=== PATIENT | female | born 1940 | race Caucasian/White ===

== ENCOUNTER 2018-12-23 13:03 | Observation (INO) | payer OTHER, BC ==
--- NOTE | 2018-12-23 13:35 | PDOC ---
History of Present Illness - General Chief Complaint: Weakness Stated Complaint: WEAKNESS Time Seen by Provider: 12/23/18 13:10 History Source: Patient - History of Present Illness Timing/Duration: other Past History - Past Medical History Allergies/Adverse Reactions: Allergies Allergy/AdvReac Type Severity Reaction Status Date / Time No Known Allergies Allergy Verified 12/23/18 13:23 Home Medications: Ambulatory Orders Atorvastatin Calcium [Lipitor] 10 mg PO HS 03/07/13 Cyanocobalamin [Vitamin B12 -] 1,000 mcg PO DAILY 03/07/13 Guar Gum [Benefiber] 1 each PO BID 03/07/13 Omega3/Dha/Epa/Fish Oil/Vit D3 [[id number]-6-[id number] Oil-Vit D3 Sftgl] 1 each PO DAILY 03/07/13 Aspirin Coated [Ecotrin -] 81 mg PO DAILY #0 tablet.ec 06/26/15 Ranitidine HCl [Zantac] 150 mg PO BID #0 tablet 06/26/15 Anemia: No Asthma: No Cancer: No Cardiac Disorders: No CVA: No COPD: No CHF: No Dementia: No Diabetes: No GI Disorders: Yes (DIVERTICULOSIS,H/O COLON POLYPS,GERD) Disorders: No Hypercholesterolemia: Yes Liver Disease: No Seizures: No Thyroid Disease: No - Surgical History Abdominal Surgery: No Appendectomy: No Cardiac Surgery: No Cholecystectomy: No Lung Surgery: No Neurologic Surgery: No Orthopedic Surgery: No - Suicide/Smoking/Psychosocial Hx Smoking Status: Yes Smoking History: Never smoked Have you smoked in the past 12 months: No Number of Cigarettes Smoked Daily: 10 Information on smoking cessation initiated: No Hx Alcohol Use: No Drug/Substance Use Hx: No Substance Use Type: None Hx Substance Use Treatment: No Review of Systems - Review of Systems Constitutional: Yes: Malaise, Weakness. No: Chills, Fever Respiratory: No: Cough, Shortness of Breath Cardiac (ROS): No: Chest Pain, Lightheadedness, Palpitations, Syncope ABD/GI: No: Diarrhea, Nausea, Vomiting, Abdominal cramping : No: Burning, Dysuria, Flank Pain, Hematuria Musculoskeletal: No: Back Pain *Physical Exam - Vital Signs Last Vital Signs Temp Pulse Resp BP Pulse Ox 97.4 F L 86 16 109/52 L 93 L 12/23/18 13:05 12/23/18 13:05 12/23/18 13:05 12/23/18 13:05 12/23/18 13:05 - Physical Exam General Appearance: Yes: Appropriately Dressed. No: Apparent Distress HEENT: positive: Normal Voice Neck: positive: Supple Respiratory/Chest: positive: Lungs Clear, Normal Breath Sounds. negative: Respiratory Distress Cardiovascular: positive: Regular Rate, S1, S2 Gastrointestinal/Abdominal: positive: Soft. negative: Tender Musculoskeletal: negative: CVA Tenderness Integumentary: positive: Dry, Warm Neurologic: positive: Fully Oriented, Alert, Normal Mood/Affect Moderate Sedation - Procedure Monitoring Vital Signs: Procedure Monitoring Vital Signs Temperature 97.4 F L 12/23/18 13:05 Pulse Rate 86 12/23/18 13:05 Respiratory Rate 16 12/23/18 13:05 Blood Pressure 109/52 L 12/23/18 13:05 O2 Sat by Pulse Oximetry (%) 93 L 12/23/18 13:05 ED Treatment Course - LABORATORY CBC & Chemistry Diagram: 12/23/18 14:05 12/23/18 13:31 Medical Decision Making - Medical Decision Making 12/23/18 13:32 78-year-old female, history of hypertension, COPD, not on oxygen, wears diapers for urinary incontinence, endometrial cancer, s/p MORENO-BSO 2/2 endometrial cancer 12/08/18 at [facility], currently on day 2 of macrobid for UTI per pt, resents with malaise and "feeling crappy" 3 days. States since surgery, she has had intermittent vaginal spotting, mostly when she wipes w/ no change in baseline. No abdominal pain, flank pain, dysuria, nausea, vomiting, fever, chills or change in bowel movements See exam Malaise R/o cardiac vs infectious vs metabolic -IVF -labs -dispo pending 12/23/18 17:11 EKG/CXR and las unremarkable. As discussed with Dr. Noble, will admit to observation given ongoing malaise 12/23/18 17:23 Case discussed with hospitalist and patient admitted to observation *DC/Admit/Observation/Transfer Diagnosis at time of Disposition: Malaise - Discharge Dispostion Condition at time of disposition: Fair Decision to Admit order: Yes - Referrals Referrals: Umberto Noble MD [Primary Care Provider] - - Patient Instructions - Post Discharge Activity
[2018-12-23 14:19] LABS: BASO % 0.3 % (0-2.0); EOS % 5.6 % (0-4.5); HEMATOCRIT 34.7 % (32.4-45.2); LYMPH % 7.2 % (8-40); MCH 28.6 pg (25.7-33.7); MCHC 34.5 g/dl (32.0-36.0); MEAN CELL VOLUME 82.9 fl (80-96); MONO % 10.4 % (3.8-10.2); NEUT % 76.5 % (42.8-82.8); PLATELET COUNT 344 K/MM3 (134-434); RBC 4.18 M/mm3 (3.60-5.2); RDW 14.6 % (11.6-15.6); WHITE BLOOD COUNT 6.3 K/mm3 (4.0-10.0)
[2018-12-23 14:38] LABS: INR 1.93 (0.83-1.09); PROTHROMBIN TIME (PATIENT) 22.9 SEC (9.7-13.0)
[2018-12-23 14:47] LABS: ALBUMIN 3.1 g/dl (3.4-5.0); ALK PHOS 103 U/L (45-117); ANION GAP 10 MMOL/L (8-16); BILIRUBIN,TOTAL 0.4 mg/dL (0.2-1); BLOOD UREA NITROGEN 32 mg/dL (7-18); CALCIUM 9.5 mg/dL (8.5-10.1); CHLORIDE 103 mmol/L (98-107); CO2 25 mmol/L (21-32); CREATININE 1.3 mg/dL (0.55-1.3); GLUCOSE,RANDOM 103 mg/dL (74-106); LIPASE 458 U/L (73-393); POTASSIUM 3.9 mmol/L (3.5-5.1); SGOT/AST 13 U/L (15-37); SGPT/ALT 15 U/L (13-61); SODIUM 138 mmol/L (136-145); TOT PROT 6.5 g/dl (6.4-8.2)
[2018-12-23] MEDS ORDERED: SODIUM CHLORIDE 500 ML IV STA ×2 (14:59→17:23)
[2018-12-23 16:41] LABS: URINE APPEARANCE SLCLOUDY; URINE BILIRUBIN NEGATIVE (<2.0 mg/dL); URINE COLOR YELLOW; URINE GLUCOSE (UA) NEGATIVE (NEGATIVE); URINE KETONE NEGATIVE (NEGATIVE); URINE LEUK ESTERASE TRACE (NEGATIVE); URINE NITRITE NEGATIVE (NEGATIVE); URINE PROTEIN NEGATIVE (NEGATIVE); URINE UROBILINOGEN NEGATIVE mg/dL (0.2-1.0)
[2018-12-23 16:50] LABS: EPI CELLS RARE /HPF (FEW); URINE MUCUS RARE
--- NOTE | 2018-12-23 17:55 | PN ---
Teaching Attending Note Name of Resident: Shireen Barnett ATTENDING PHYSICIAN STATEMENT I saw and evaluated the patient. I reviewed the resident's note and discussed the case with the resident. I agree with the resident's findings and plan as documented with exceptions below. SUBJECTIVE: 78 yof with PMHx of HTN, recent MORENO-BSO for endometrial Ca with ?appendectomy (), On Xarelto since surgery for ?Prophylaxis, COPD not on home oxygen, > 50 pack year smoking history, has been having weakness/malaise with occasional vaginal spotting since her surgery with decreased oral intake. A week ago, she had urinary symptoms, diagnosed with UTI and placed on 1 week course of macrobid which she will be finishing tomorrow. Since taking antibiotics, she has been having worsening oral intake, weakness, called her jamb cutter who advised her to come to the ED. 12 point ROS done, patient denies any fevers, chills, URI like illness, sick contacts, abdominal pain or any new or concerning vaginal bleeding over the occasional spotting as mentioned above. Pos non productive cough last few days. OBJECTIVE: Vital Signs Period Temp Pulse Resp BP Sys/Arndt Pulse Ox Last 24 Hr 97.4 F 86 16 109/52 93 Intake & Output 12/20/18 12/21/18 12/22/18 12/23/18 23:59 23:59 23:59 23:59 Weight 155 lb GENERAL: Awake, alert, and fully oriented, in no acute distress. HEAD: Normal with no signs of trauma. EYES: Pupils equal, round and reactive to light, extraocular movements intact, sclera anicteric, conjunctiva clear. No lid lag. EARS, NOSE, THROAT: Ears normal, nares patent, oropharynx clear without exudates. Dry skin and mucous membrane NECK: soft, supple, no JVD noted LUNGS: Breath sounds equal, clear to auscultation bilaterally. No wheezes, and no crackles. No accessory muscle use. HEART: S1S2 regular rate rhythm ABDOMEN: Soft, non tendern, midline lower surgical incision with no active bleeding/discharge/erythema, RLQ small incision with 2 jordi with clean incision MUSCULOSKELETAL: Normal range of motion at all joints. No bony deformities or tenderness. No CVA tenderness. UPPER EXTREMITIES: 2+ pulses, warm, well-perfused. No cyanosis. No clubbing. No peripheral edema. LOWER EXTREMITIES: 2+ pulses, warm, well-perfused. No calf tenderness. No peripheral edema. NEUROLOGICAL: Cranial nerves II-XII intact. Normal speech. Facial symmetry, AAOX3, tongue midline, gait not observed PSYCHIATRIC: Cooperative. Good eye contact. Appropriate mood and affect. SKIN: Warm, dry, normal turgor, no rashes or lesions noted, normal capillary refill. Home Medications Medication Instructions Recorded Atorvastatin Calcium [Lipitor] 10 mg PO HS 03/07/13 Cyanocobalamin [Vitamin B12 -] 1,000 mcg PO DAILY 03/07/13 Guar Gum [Benefiber] 1 each PO BID 03/07/13 Omega3/Dha/Epa/Fish Oil/Vit D3 1 each PO DAILY 03/07/13 [Kpmiv-4-Xqfe Oil-Vit D3 Sftgl] Aspirin Coated [Ecotrin -] 81 mg PO DAILY #0 tablet.ec 06/26/15 Ranitidine HCl [Zantac] 150 mg PO BID #0 tablet 06/26/15 Active Medications Sodium Chloride (Normal Saline -) 500 mls @ 500 mls/hr IV ASDIR STA Stop: 12/23/18 18:22 Last Admin: 12/23/18 17:25 Dose: 500 mls/hr Laboratory Results - last 24 hr 12/23/18 12/23/18 12/23/18 13:31 14:05 14:05 WBC 6.3 RBC 4.18 Hgb 12.0 Hct 34.7 MCV 82.9 MCH 28.6 MCHC 34.5 RDW 14.6 Plt Count 344 MPV 9.0 Absolute Neuts (auto) 4.8 Neutrophils % 76.5 Lymphocytes % 7.2 L Monocytes % 10.4 H Eosinophils % 5.6 H Basophils % 0.3 Nucleated RBC % 0 PT with INR INR Sodium 138 Potassium 3.9 Chloride 103 Carbon Dioxide 25 Anion Gap 10 BUN 32 H Creatinine 1.3 Creat Clearance w eGFR 39.61 Random Glucose 103 Calcium 9.5 Total Bilirubin 0.4 AST 13 L ALT 15 Alkaline Phosphatase 103 Creatine Kinase 31 Troponin I < 0.02 B-Natriuretic Peptide 301.4 Total Protein 6.5 Albumin 3.1 L Lipase 458 H Urine Color Urine Appearance Urine pH Ur Specific Cameron Urine Protein Urine Glucose (UA) Urine Ketones Urine Blood Urine Nitrite Urine Bilirubin Urine Urobilinogen Ur Leukocyte Esterase Urine WBC (Auto) Urine RBC (Auto) Ur Epithelial Cells Urine Mucus Influenza A (Rapid) Influenza B (Rapid) Blood Type Antibody Screen 12/23/18 12/23/18 12/23/18 14:05 14:05 14:05 WBC RBC Hgb Hct MCV MCH MCHC RDW Plt Count MPV Absolute Neuts (auto) Neutrophils % Lymphocytes % Monocytes % Eosinophils % Basophils % Nucleated RBC % PT with INR 22.90 H INR 1.93 H Sodium Potassium Chloride Carbon Dioxide Anion Gap BUN Creatinine Creat Clearance w eGFR Random Glucose Calcium Total Bilirubin AST ALT Alkaline Phosphatase Creatine Kinase Troponin I B-Natriuretic Peptide Total Protein Albumin Lipase Urine Color Urine Appearance Urine pH Ur Specific Cameron Urine Protein Urine Glucose (UA) Urine Ketones Urine Blood Urine Nitrite Urine Bilirubin Urine Urobilinogen Ur Leukocyte Esterase Urine WBC (Auto) Urine RBC (Auto) Ur Epithelial Cells Urine Mucus Influenza A (Rapid) Negative Influenza B (Rapid) Negative Blood Type B POSITIVE Antibody Screen Negative 12/23/18 12/23/18 15:09 16:13 WBC RBC Hgb Hct MCV MCH MCHC RDW Plt Count MPV Absolute Neuts (auto) Neutrophils % Lymphocytes % Monocytes % Eosinophils % Basophils % Nucleated RBC % PT with INR INR Sodium Potassium Chloride Carbon Dioxide Anion Gap BUN Creatinine Creat Clearance w eGFR Random Glucose Calcium Total Bilirubin AST ALT Alkaline Phosphatase Creatine Kinase Troponin I B-Natriuretic Peptide Total Protein Albumin Lipase Urine Color Cancelled Yellow Urine Appearance Cancelled Slcloudy Urine pH Cancelled 5.0 Ur Specific Cameron Cancelled 1.009 L Urine Protein Cancelled Negative Urine Glucose (UA) Cancelled Negative Urine Ketones Cancelled Negative Urine Blood Cancelled 3+ H Urine Nitrite Cancelled Negative Urine Bilirubin Cancelled Negative Urine Urobilinogen Cancelled Negative Ur Leukocyte Esterase Cancelled Trace Urine WBC (Auto) 3 Urine RBC (Auto) 2 Ur Epithelial Cells Rare Urine Mucus Rare Influenza A (Rapid) Influenza B (Rapid) Blood Type Antibody Screen CXR results reviewed ASSESSMENT AND PLAN: 78 yof with PMHx of HTN, recent MOREON-BSO for endometrial Ca with ?appendectomy (), On Xarelto since surgery for ?Prophylaxis, COPD not on home oxygen, > 50 pack year smoking history, recent UTI on macrobid admitted with weakness/ dehydration and failure to thrive -Weakness, suspect multifactorial from recent infection/antibiotics/poor oral intake -Dehydration -Failure to thrive -Recent UTI, on macrobid -?lung nodule, outpatient follow up -COPD not on home oxygen -Endometrial Ca s/p recent MORENO/BSO/?Appendectomy on xarelto -HTN Plan: No s/s concerning for new infection U/a clean. Finish course of macrobid (last dose tomorrow) Gentle hydration overnight, PT eval Continue home meds including xarelto Monitor for concerning bleed or drop in h/h. Outpatient follow up for lung nodule. Dispo admit to obs, d/c in 24 hours pending above if no new concerns Plan discussed patient and /daughter at bedside in detail, all questions answered. Total admit time 55 min.
[2018-12-23] MEDS ORDERED: ALBUTEROL SO4 0.083% IH SOL 2.5 MG/3 ML VIAL.NEB. NEB PRN (18:11)
--- NOTE | 2018-12-23 18:12 | HP ---
CHIEF COMPLAINT: "Feeling Lousy" PCP: Dr. Noble HISTORY OF PRESENT ILLNESS: Patient is a 78 year old female with a PMHx of HTN, HLD, COPD, hypothyroidism, GERD, endometrial cancer s/p MORENO-BSO with appendectomy on 12/08/18 who presented today for a three day history of malaise/weakness and poor oral intake associated with a dry cough. Patient reports being diagnosed with UTI and was given a five day course of Macrobid. Patient states she lost her appetite and was more weak after starting the antibiotics. According to her daughter and at bedside, patient has not been ambulating much in the last 3 days due to the weakness. Patient also reports having occasional vaginal spotting after her procedure but states "very light spotting." She called her OBGYN today and recommended to be evaluated in the ED, which prompted this hospital visit. Otherwise, patient denies being around sick contacts Patient reports having a colonoscopy and endoscopy September 2018 Otherwise, patient denies any chest pain, palpitations, shortness of breath, fever, chills, nausea, vomiting, abdominal pain, loss of consciousness, urinary or bowel symptoms. Of note, patient on Xarelto after her procedure and is unsure why. ER course was notable for: (1) 250cc of fluids (2) (3) Recent Travel: Denies PAST MEDICAL HISTORY: HTN HLD COPD Hypothyroidism GERD Endometrial Cancer PAST SURGICAL HISTORY: Appendectomy MORENO-BSO Social History: Smoking: Former Smoker. Quit 2 years ago. 1PPD from age 16 to 70 Alcohol: Denies Drugs: Denies Allergies: No Known Allergies Allergy (Verified 12/23/18 13:23) HOME MEDICATIONS: Home Medications Medication Instructions Recorded Atorvastatin Calcium [Lipitor] 10 mg PO HS 03/07/13 Cyanocobalamin [Vitamin B12 -] 1,000 mcg PO DAILY 03/07/13 Guar Gum [Benefiber] 1 each PO BID 03/07/13 Omega3/Dha/Epa/Fish Oil/Vit D3 1 each PO DAILY 03/07/13 [[id number]-9-Xccj Oil-Vit D3 Sftgl] Aspirin Coated [Ecotrin -] 81 mg PO DAILY #0 tablet.ec 06/26/15 Ranitidine HCl [Zantac] 150 mg PO BID #0 tablet 06/26/15 REVIEW OF SYSTEMS CONSTITUTIONAL: generalized weakness, malaise, loss of appetite Absent: fever, chills, diaphoresis, weight change HEENT: Absent: rhinorrhea, nasal congestion, throat pain, throat swelling, difficulty swallowing, mouth swelling, ear pain, eye pain, visual changes CARDIOVASCULAR: Absent: chest pain, syncope, palpitations, irregular heart rate, lightheadedness , peripheral edema RESPIRATORY: dry cough Absent: shortness of breath, dyspnea with exertion, orthopnea, wheezing, stridor , hemoptysis GASTROINTESTINAL: Absent: abdominal pain, abdominal distension, nausea, vomiting, diarrhea, constipation, melena, hematochezia GENITOURINARY: Absent: dysuria, frequency, urgency, hesitancy, hematuria, flank pain, genital pain MUSCULOSKELETAL: Absent: myalgia, arthralgia, joint swelling, back pain, neck pain SKIN: Absent: rash, itching, pallor HEMATOLOGIC/IMMUNOLOGIC: Absent: easy bleeding, easy bruising, lymphadenopathy, frequent infections ENDOCRINE: Absent: unexplained weight gain, unexplained weight loss, heat intolerance, cold intolerance NEUROLOGIC: Absent: headache, focal weakness or paresthesias, dizziness, unsteady gait, seizure, mental status changes, bladder or bowel incontinence PSYCHIATRIC: Absent: anxiety, depression, suicidal or homicidal ideation, hallucinations. PHYSICAL EXAMINATION Vital Signs - 24 hr 12/23/18 13:05 Temperature 97.4 F L Pulse Rate 86 Respiratory 16 Rate Blood Pressure 109/52 L O2 Sat by Pulse 93 L Oximetry (%) GENERAL: Awake, alert, and fully oriented, in no acute distress. HEAD: Normal with no signs of trauma. EYES: Pupils equal, round and reactive to light, extraocular movements intact, sclera anicteric, conjunctiva clear.\\ EARS, NOSE, THROAT: Oropharynx clear without exudates. Dry mucous membranes. NECK: Normal range of motion, supple without lymphadenopathy, JVD, or masses. LUNGS: Breath sounds equal, clear to auscultation bilaterally. No wheezes, and no crackles. No accessory muscle use. HEART: Regular rate and rhythm, normal S1 and S2 without murmur, rub or gallop. ABDOMEN: Soft, nontender, mildly distended, normoactive bowel sounds, no guarding, no rebound, no masses. Midline vertical surgical incision with no erythema, drainage or bleeding. Small incision with stable in the RLQ with no erythema or drainage. MUSCULOSKELETAL: No CVA tenderness. UPPER EXTREMITIES: No peripheral edema. LOWER EXTREMITIES: No peripheral edema. NEUROLOGICAL: No facial Asymmetry. Normal speech. PSYCHIATRIC: Cooperative. Good eye contact. Appropriate mood and affect. SKIN: Warm, dry, normal turgor, no rashes or lesions noted, normal capillary refill. Laboratory Results 12/23/18 14:05 12/23/18 13:31 12/23/18 12/23/18 12/23/18 13:31 14:05 14:05 PT with INR 22.90 H INR 1.93 H AST 13 L ALT 15 Alkaline Phosphatase 103 Troponin I < 0.02 B-Natriuretic Peptide 301.4 Total Protein 6.5 Albumin 3.1 L Lipase 458 H ASSESSMENT/PLAN: Patient is a 78 year old female who presented for weakness and malaise. Patient admitted for observation. Weakness and Malaise/Failure to Thrive -With poor oral intake. Likely multifactorial from recent surgery, UTI and antibiotic use -No concerns for active infection -No fevers, leukocytosis, or any signs of active infection -Gentle hydration overnight with IV fluids -Encourage PO -PT eval Elevated BUN -Likely dehydrated from poor oral intake -Light hydration with IV NS @75mls/hr -Encourage PO intake -Continue to monitor BMP Recent UTI -U/A clean -Continue Macrobid 100mg with one more dose for tomorrow morning COPD -No acute exacerbation. On -Duoneb PRN and Proair QID PRN Endometrial Cancer -Recent MORENO/BSO -Was started on Xarelto 10mg for one month. Unknown reason. However, will resume HTN -Continue Losartan 100mg daily -Continue to monitor BP Lung Nodule -Found on Chest X-Ray -Pulmonology follow up F/E/N -IV NS @75mls/ hr -Electrolytes wnl -Sodium controlled diet Prophylaxis -Moderate risk. Xarelto 10mg for DVT -No GI required Disposition -Full code -Will give gentle hydration overnight and PT eval tomorrow. Likely discharged tomorrow. Shireen Barnett [id number] Visit type - Emergency Visit Emergency Visit: Yes ED Registration Date: 12/23/18 Care time: The patient presented to the Emergency Department on the above date and was hospitalized for further evaluation of their emergent condition. - New Patient This patient is new to me today: Yes Date on this admission: 12/23/18 - Critical Care Critical Care patient: No
[2018-12-23] MEDS: SODIUM CHLORIDE 1,000 ML IV SCH (18:25)
[2018-12-23] MEDS ORDERED: ALBUTEROL SO4 8 GM HFA INHALER IH PRN (19:09)
[2018-12-23 20:27] VITALS: BMI 28.0
[2018-12-23] MEDS ORDERED: ALBUTEROL SO4 8 GM HFA INHALER IH SCH (22:00)
[2018-12-23] MEDS ORDERED: ATORVASTATIN CA 10 MG TABLET (FP) PO SCH (22:00)
[2018-12-23] MEDS ORDERED: LOSARTAN POTASSIUM 50 MG TABLET (FP) PO SCH (22:30)
[2018-12-24] MEDS ORDERED: LEVOTHYROXINE NA 25 MCG TABLET (FP) PO SCH (07:00)
[2018-12-24 07:26] LABS: HEMATOCRIT 32.1 % (32.4-45.2); MCH 28.5 pg (25.7-33.7); MCHC 34.3 g/dl (32.0-36.0); MEAN CELL VOLUME 83.1 fl (80-96); MEAN PLT VOLUME 9.4 fl (7.5-11.1); PLATELET COUNT 336 K/MM3 (134-434); RBC 3.87 M/mm3 (3.60-5.2); RDW 14.8 % (11.6-15.6); WHITE BLOOD COUNT 4.9 K/mm3 (4.0-10.0)
[2018-12-24 07:42] LABS: INR 1.23 (0.83-1.09); PROTHROMBIN TIME (PATIENT) 14.6 SEC (9.7-13.0)
[2018-12-24 07:45] LABS: ACTIVATED PTT 30.6 SECONDS (25.2-36.5)
[2018-12-24 08:25] LABS: ANION GAP 7 MMOL/L (8-16); BLOOD UREA NITROGEN 21 mg/dL (7-18); CALCIUM 7.9 mg/dL (8.5-10.1); CHLORIDE 106 mmol/L (98-107); CO2 24 mmol/L (21-32); CREATININE 0.9 mg/dL (0.55-1.3); GLUCOSE,RANDOM 81 mg/dL (74-106); POTASSIUM 3.7 mmol/L (3.5-5.1); SODIUM 138 mmol/L (136-145)
[2018-12-24] MEDS: SODIUM CHLORIDE 1,000 ML IV SCH (09:30)
[2018-12-24] MEDS ORDERED: AMITRIPTYLINE HCL 25 MG TABLET (FP) PO SCH (10:00)
[2018-12-24] MEDS ORDERED: LOSARTAN POTASSIUM 50 MG TABLET (FP) PO SCH (10:00)
--- NOTE | 2018-12-24 11:51 | DS ---
Physical Exam: SUBJECTIVE: Patient seen and examined, still feels weak but better, no new fevers, chills, dyspnea, abdominal or urinary symptoms. No new or concerning vaginal bleed noted. OBJECTIVE: Vital Signs Period Temp Pulse Resp BP Sys/Arndt Pulse Ox Last 24 Hr 97.4 F-99.2 F 72-86 16-20 103-146/52-74 93-99 Intake & Output 12/21/18 12/22/18 12/23/18 12/24/18 23:59 23:59 23:59 23:59 Intake Total 1000 900 Balance 1000 900 Weight 148 lb 1.6 oz PHYSICAL EXAM GENERAL: The patient is awake, alert, and fully oriented, in no acute distress. HEAD: Normal with no signs of trauma. EYES: PERRL, extraocular movements intact, sclera anicteric, conjunctiva clear. ENT: Ears normal, nares patent, oropharynx clear without exudates, moist mucous membranes. NECK: Trachea midline, full range of motion, supple. LUNGS: Breath sounds equal, clear to auscultation bilaterally, no wheezes, no crackles, no accessory muscle use. HEART: Regular rate and rhythm, S1, S2 ABDOMEN: Soft, nontender, well healing surgical incision, 2 jordi RLQ surgical incision, non distended, no voluntary or involuntary guarding or rigidity, no suprapubic tenderness, no CVA tenderness EXTREMITIES: 2+ pulses, warm, well-perfused, no edema. NEUROLOGICAL: Cranial nerves II through XII grossly intact. Normal speech, gait not observed. PSYCH: Normal mood, normal affect. SKIN: Warm, dry, normal turgor, no rashes or lesions noted. LABS Laboratory Results - last 24 hr 12/23/18 12/23/18 12/23/18 13:31 14:05 14:05 WBC 6.3 RBC 4.18 Hgb 12.0 Hct 34.7 MCV 82.9 MCH 28.6 MCHC 34.5 RDW 14.6 Plt Count 344 MPV 9.0 Absolute Neuts (auto) 4.8 Neutrophils % 76.5 Lymphocytes % 7.2 L Monocytes % 10.4 H Eosinophils % 5.6 H Basophils % 0.3 Nucleated RBC % 0 PT with INR INR PTT (Actin FS) Sodium 138 Potassium 3.9 Chloride 103 Carbon Dioxide 25 Anion Gap 10 BUN 32 H Creatinine 1.3 Creat Clearance w eGFR 39.61 Random Glucose 103 Calcium 9.5 Total Bilirubin 0.4 AST 13 L ALT 15 Alkaline Phosphatase 103 Creatine Kinase 31 Troponin I < 0.02 B-Natriuretic Peptide 301.4 Total Protein 6.5 Albumin 3.1 L Lipase 458 H Urine Color Urine Appearance Urine pH Ur Specific [place] Urine Protein Urine Glucose (UA) Urine Ketones Urine Blood Urine Nitrite Urine Bilirubin Urine Urobilinogen Ur Leukocyte Esterase Urine WBC (Auto) Urine RBC (Auto) Ur Epithelial Cells Urine Mucus Influenza A (Rapid) Influenza B (Rapid) Blood Type Antibody Screen 12/23/18 12/23/18 12/23/18 14:05 14:05 14:05 WBC RBC Hgb Hct MCV MCH MCHC RDW Plt Count MPV Absolute Neuts (auto) Neutrophils % Lymphocytes % Monocytes % Eosinophils % Basophils % Nucleated RBC % PT with INR 22.90 H INR 1.93 H PTT (Actin FS) Sodium Potassium Chloride Carbon Dioxide Anion Gap BUN Creatinine Creat Clearance w eGFR Random Glucose Calcium Total Bilirubin AST ALT Alkaline Phosphatase Creatine Kinase Troponin I B-Natriuretic Peptide Total Protein Albumin Lipase Urine Color Urine Appearance Urine pH Ur Specific [place] Urine Protein Urine Glucose (UA) Urine Ketones Urine Blood Urine Nitrite Urine Bilirubin Urine Urobilinogen Ur Leukocyte Esterase Urine WBC (Auto) Urine RBC (Auto) Ur Epithelial Cells Urine Mucus Influenza A (Rapid) Negative Influenza B (Rapid) Negative Blood Type B POSITIVE Antibody Screen Negative 12/23/18 12/23/18 12/23/18 15:09 16:13 19:15 WBC RBC Hgb Hct MCV MCH MCHC RDW Plt Count MPV Absolute Neuts (auto) Neutrophils % Lymphocytes % Monocytes % Eosinophils % Basophils % Nucleated RBC % PT with INR INR PTT (Actin FS) Sodium Potassium Chloride Carbon Dioxide Anion Gap BUN Creatinine Creat Clearance w eGFR Random Glucose Calcium Total Bilirubin AST ALT Alkaline Phosphatase Creatine Kinase Troponin I B-Natriuretic Peptide Total Protein Albumin Lipase Urine Color Cancelled Yellow Urine Appearance Cancelled Slcloudy Urine pH Cancelled 5.0 Ur Specific [place] Cancelled 1.009 L Urine Protein Cancelled Negative Urine Glucose (UA) Cancelled Negative Urine Ketones Cancelled Negative Urine Blood Cancelled 3+ H Urine Nitrite Cancelled Negative Urine Bilirubin Cancelled Negative Urine Urobilinogen Cancelled Negative Ur Leukocyte Esterase Cancelled Trace Urine WBC (Auto) 3 Urine RBC (Auto) 2 Ur Epithelial Cells Rare Urine Mucus Rare Influenza A (Rapid) Influenza B (Rapid) Blood Type B POSITIVE Antibody Screen 12/24/18 12/24/18 12/24/18 06:00 06:00 06:00 WBC 4.9 RBC 3.87 Hgb 11.0 Hct 32.1 L MCV 83.1 MCH 28.5 MCHC 34.3 RDW 14.8 Plt Count 336 MPV 9.4 Absolute Neuts (auto) Neutrophils % Lymphocytes % Monocytes % Eosinophils % Basophils % Nucleated RBC % PT with INR 14.60 H INR 1.23 H PTT (Actin FS) 30.6 Sodium 138 Potassium 3.7 Chloride 106 Carbon Dioxide 24 Anion Gap 7 L BUN 21 H Creatinine 0.9 Creat Clearance w eGFR > 60 Random Glucose 81 Calcium 7.9 L Total Bilirubin AST ALT Alkaline Phosphatase Creatine Kinase Troponin I B-Natriuretic Peptide Total Protein Albumin Lipase Urine Color Urine Appearance Urine pH Ur Specific [place] Urine Protein Urine Glucose (UA) Urine Ketones Urine Blood Urine Nitrite Urine Bilirubin Urine Urobilinogen Ur Leukocyte Esterase Urine WBC (Auto) Urine RBC (Auto) Ur Epithelial Cells Urine Mucus Influenza A (Rapid) Influenza B (Rapid) Blood Type Antibody Screen HOSPITAL COURSE: Date of Admission:12/23/18 Date of Discharge: 12/24/18 Minutes to complete discharge: 35 Discharge Summary Reason For Visit: MALAISE Current Active Problems Malaise (Acute) Hospital Course: 78 HTN, 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 She did not have any new clinical evidence of infection. no concerning vaginal bleed or surgical concerns were noted. She was evaluated by physical therapy and advised home PT which has been arranged. She was placed on gentle hydration and was tolerating diet well during her stay. She will be discharged in stable condition with outpatient follow up with her group fitness instructor and PCP. She was incidentally noted with nodule, likely calcified on left lung/breast region which was present on her CT Chest in 10/2018 and is advised outpatient follow up. Condition: Good - Instructions Diet, Activity, Other Instructions: You were admitted with weakness. You received hydration and were evaluated by physical therapy and recommended home physical therapy. MEDICATIONS: Continue your home medications as before You finished your course of antibiotic macrobid in the hospital. No further treatment needed at this point. ACTIVITY: As tolerated try to drink more fluids and maintain adequate hydration FOLLOW UP; You were incidentally found with left breast nodule (Which was present on CT scan done in oct 2018). Please follow up with your doctor about the same. Follow up with your group fitness instructor as scheduled Follow up with Dr. Noble in 1 week If you notice any new fevers, chills, bleeding, cough, trouble breathing, urinary symptoms, belly pain or new concerns, please call 911 or come to ED Referrals: Umberto Noble MD [Primary Care Provider] - Disposition: VNS/HOME HEALTH CARE - Home Medications Comprehensive Discharge Medication List: Ambulatory Orders Atorvastatin Calcium [Lipitor] 10 mg PO HS 03/07/13 Cyanocobalamin [Vitamin B12 -] 1,000 mcg PO DAILY 03/07/13 Guar Gum [Benefiber] 1 each PO BID 03/07/13 Omega3/Dha/Epa/Fish Oil/Vit D3 [Pjoer-2-Esix Oil-Vit D3 Sftgl] 1 each PO DAILY 03/07/13 Albuterol Sulfate [Proair Hfa] 8.5 gm IH QID 12/23/18 Amitriptyline HCl [Elavil -] 25 mg PO DAILY 12/23/18 Levothyroxine [Synthroid -] 25 mcg PO DAILY 12/23/18 Losartan Potassium 100 mg PO DAILY 12/23/18 Rivaroxaban [Xarelto -] 10 mg PO DAILY 12/23/18 This patient is new to me today: No Emergency Visit: Yes ED Registration Date: 12/23/18 Care time: The patient presented to the Emergency Department on the above date and was hospitalized for further evaluation of their emergent condition. Critical Care patient: No - Discharge Referral Referred to [facility] No
[2018-12-24 14:26] VITALS: BP 102/59; PULSE 78; TEMP 98.4
--- NOTE | 2018-12-24 16:45 | EKG ---
Test Reason : Blood Pressure : / mmHG Vent. Rate : 084 BPM Atrial Rate : 084 BPM P-R Int : 138 ms QRS Dur : 078 ms QT Int : 382 ms P-R-T Axes : 065 008 049 degrees QTc Int : 451 ms NORMAL SINUS RHYTHM NONSPECIFIC ST ABNORMALITY ABNORMAL ECG WHEN COMPARED WITH ECG OF 04-NOV-2004 11:38, [place] INTERVAL HAS INCREASED Confirmed by Carmelita Yee ([id number]) on 12/24/2018 4:44:44 PM Referred By: Confirmed By:Carmelita Yee
[2018-12-25] MEDS ORDERED: ATORVASTATIN CA 10 MG TABLET (FP) PO SCH (22:00)
== END 2018-12-24 15:53 | disposition home health service (06) ==
LOC: JER 13:03 → JERBED 17:13 → J8W 18:57
PROVIDERS: ADMIT Hospitalist; ATTEND Hospitalist
PROC: 3E0337Z Introduction of Electrolytic and Water Balance Substance into Peripheral Vein, Percutaneous Approach (ICD-10-PCS; principal; 2018-12-23)
DX: R53.81 Other malaise (principal); R53.1 Weakness; R62.7 Adult failure to thrive; E86.0 Dehydration; J44.9 Chronic obstructive pulmonary disease, unspecified; C54.1 Malignant neoplasm of endometrium; I10 Essential (primary) hypertension; E78.00 Pure hypercholesterolemia, unspecified; K21.9 Gastro-esophageal reflux disease without esophagitis; Z87.891 Personal history of nicotine dependence; R79.89 Other specified abnormal findings of blood chemistry; Z79.01 Long term (current) use of anticoagulants; Z79.82 Long term (current) use of aspirin; Z68.28 Body mass index [BMI] 28.0-28.9, adult; Z87.440 Personal history of urinary (tract) infections
CPT/HCPCS: 36415; 71046-TC-FY; 80048; 80053; 81003; 81015; 82550; 83690; 83880; 84484; 85025; 85027; 85610; 85730; 86850; 86900; 86901; 87086; 87804; 93005; 93010; 96360; 96361; 97116-GP; 97161-GP; 99283-25; G0378; J7030

== ENCOUNTER 2022-04-15 04:23 | Day surgery (SDC) | payer OTHER, BC ==
[2022-04-10 14:11] VITALS: BMI 28.3
[~2022-04-15 04:23] MED LIST: ACETAMINOPHEN 325 MG TABLET (FP) PO PRN; CYCLOPENTOLATE HCL 1% OPHTH SOLN 2 ML BOTTLE OP SCH; KETOROLAC TROMETHAMINE 0.5% EYE DROP 1 DROP DROPS OP SCH; OFLOXACIN 0.3% OPHTHALMIC SOLUTION 5 ML BOTTLE OP SCH; PHENYLEPHRINE 2.5% OPHTH SOLN 15 ML BOTTLE OP SCH; TROPICAMIDE 1% OPHTH SOLN 15 ML BOTTLE OP SCH
[2022-04-15] MEDS ORDERED: KETOROLAC TROMETHAMINE 0.5% EYE DROP 1 DROP DROPS ONE (06:20)
[2022-04-15] MEDS ORDERED: CYCLOPENTOLATE HCL 1% OPHTH SOLN 2 ML BOTTLE ONE (06:20)
[2022-04-15] MEDS ORDERED: OFLOXACIN 0.3% OPHTHALMIC SOLUTION 5 ML BOTTLE ONE (06:21)
[2022-04-15] MEDS ORDERED: PHENYLEPHRINE 2.5% OPTHALMIC DROP BOTTLE ONE (06:21)
[2022-04-15] MEDS ORDERED: TROPICAMIDE 1% OPHTH SOLN 15 ML BOTTLE ONE (06:21)
[2022-04-15] MEDS ORDERED: LIDOCAINE HCL/PF 1% SDV 5ML VIAL ONE (07:07)
[2022-04-15] MEDS ORDERED: CHONDROITIN SU A/HYALUR SOD 1 KIT ONE (07:07)
[2022-04-15] MEDS ORDERED: VANCOMYCIN 500 MG VIAL (RESTRICTED TO ID ONLY) ONE (07:18)
[2022-04-15] MEDS ORDERED: EPINEPHrine/PF 1 MG/1 ML (1:1,000) AMPULE ONE (07:18)
[2022-04-15] MEDS ORDERED: TETRACAINE 0.5% OPHTH SOLN 2 ML BOTTLE ONE (07:18)
[2022-04-15] MEDS ORDERED: POVIDONE-IODINE 5% OPHTHALMIC PREP 30 ML SOLUTION ONE (07:19)
[2022-04-15] MEDS ORDERED: SUCCINYLCHOLINE CHLORIDE 200 MG/10 ML SYRINGE ONE (07:26)
[2022-04-15] MEDS ORDERED: PROPOFOL 20 ML ONE (07:26)
[2022-04-15] MEDS ORDERED: MIDAZOLAM HCL 2 MG/2 ML SINGLE DOSE VIAL ONE (08:08)
[2022-04-15] MEDS ORDERED: TETRACAINE 0.5% OPHTH SOLN 2 ML BOTTLE TP ONE (08:11)
[2022-04-15] MEDS ORDERED: POVIDONE-IODINE 5% OPHTHALMIC PREP 30 ML SOLUTION OD ONE (08:12)
[2022-04-15] MEDS ORDERED: BSS (NA/CA/MG/K) BALANCED SALT SOLUTION OPHTH SOLN 15 ML BOTTLE OD ONE (08:18)
[2022-04-15] MEDS ORDERED: CHONDROITIN SU A/HYALUR SOD 1 KIT IO ONE (08:19)
[2022-04-15] MEDS ORDERED: LIDOCAINE HCL 1% PRESERVATIVE FREE - 30ML VIAL IO ONE (08:19)
[2022-04-15] MEDS ORDERED: EPINEPHrine/PF 1 MG/1 ML (1:1,000) AMPULE SQ ONE (08:25)
[2022-04-15 10:12] VITALS: BP 150/70; PULSE 68; TEMP 97
== END 2022-04-15 10:13 | disposition home or self-care (01) ==
LOC: JASU-SURG 04:23
PROVIDERS: ATTEND Ophthalmology
PROC: 08RJ3JZ Replacement of Right Lens with Synthetic Substitute, Percutaneous Approach (ICD-10-PCS; principal; 2022-04-15 08:00)
DX: H26.9 Unspecified cataract (principal)

== ENCOUNTER 2022-04-29 04:22 | Day surgery (SDC) | payer OTHER, BC ==
[2022-04-27 15:40] VITALS: BMI 28.3
[~2022-04-29 04:22] MED LIST changes: -CYCLOPENTOLATE HCL 1% OPHTH SOLN 2 ML BOTTLE OP SCH; -KETOROLAC TROMETHAMINE 0.5% EYE DROP 1 DROP DROPS OP SCH; -OFLOXACIN 0.3% OPHTHALMIC SOLUTION 5 ML BOTTLE OP SCH; -TROPICAMIDE 1% OPHTH SOLN 15 ML BOTTLE OP SCH
[2022-04-29] MEDS ORDERED: KETOROLAC TROMETHAMINE 0.5% EYE DROP 1 DROP DROPS ONE (06:30)
[2022-04-29] MEDS ORDERED: OFLOXACIN 0.3% OPHTHALMIC SOLUTION 5 ML BOTTLE ONE (06:31)
[2022-04-29] MEDS ORDERED: TROPICAMIDE 1% OPHTH SOLN 15 ML BOTTLE ONE (06:31)
[2022-04-29] MEDS ORDERED: CYCLOPENTOLATE HCL 1% OPHTH SOLN 2 ML BOTTLE ONE (06:31)
[2022-04-29] MEDS: TROPICAMIDE 1% OPHTH SOLN 15 ML BOTTLE OP SCH ×3 (06:39→07:02)
[2022-04-29] MEDS: CYCLOPENTOLATE HCL 1% OPHTH SOLN 2 ML BOTTLE OP SCH ×3 (06:39→07:01)
[2022-04-29] MEDS: OFLOXACIN 0.3% OPHTHALMIC SOLUTION 5 ML BOTTLE OP SCH ×3 (06:39→07:01)
[2022-04-29] MEDS: PHENYLEPHRINE 2.5% OPTHALMIC DROP BOTTLE ONE ×3 (06:39→07:01)
[2022-04-29] MEDS: KETOROLAC TROMETHAMINE 0.5% EYE DROP 1 DROP DROPS OP SCH ×3 (06:39→07:01)
[2022-04-29] MEDS ORDERED: VANCOMYCIN 500 MG VIAL (RESTRICTED TO ID ONLY) ONE (07:11)
[2022-04-29] MEDS ORDERED: LIDOCAINE HCL/PF 1% SDV 5ML VIAL ONE (07:11)
[2022-04-29] MEDS ORDERED: TETRACAINE 0.5% OPHTH SOLN 2 ML BOTTLE ONE (07:17)
[2022-04-29] MEDS ORDERED: POVIDONE-IODINE 5% OPHTHALMIC PREP 30 ML SOLUTION ONE (07:42)
[2022-04-29] MEDS ORDERED: MIDAZOLAM HCL 2 MG/2 ML SINGLE DOSE VIAL ONE (07:58)
[2022-04-29] MEDS ORDERED: TETRACAINE 0.5% OPHTH SOLN 2 ML BOTTLE OS ONE ×2 (07:59→08:00)
[2022-04-29] MEDS ORDERED: POVIDONE-IODINE 5% OPHTHALMIC PREP 30 ML SOLUTION OS ONE (08:00)
[2022-04-29] MEDS ORDERED: BSS (NA/CA/MG/K) BALANCED SALT SOLUTION OPHTH SOLN 15 ML BOTTLE IO ONE (08:07)
[2022-04-29] MEDS ORDERED: LIDOCAINE HCL 1% PRESERVATIVE FREE - 30ML VIAL IO ONE (08:08)
[2022-04-29] MEDS ORDERED: CHONDROITIN SU A/HYALUR SOD 1 KIT IO ONE (08:08)
[2022-04-29] MEDS ORDERED: EPINEPHrine/PF 1 MG/1 ML (1:1,000) AMPULE SQ ONE (08:14)
[2022-04-29 15:30] VITALS: BP 150/80; PULSE 68; TEMP 98.2
== END 2022-04-29 10:30 | disposition home or self-care (01) ==
LOC: JASU-SURG 04:22
PROVIDERS: ATTEND Ophthalmology
PROC: 08RK3JZ Replacement of Left Lens with Synthetic Substitute, Percutaneous Approach (ICD-10-PCS; principal; 2022-04-29 08:00)
DX: H26.9 Unspecified cataract (principal)

== ENCOUNTER 2022-08-06 05:09 | Day surgery (SDC) | payer OTHER, BC ==
[2022-08-04 16:19] VITALS: BMI 28.3
[2022-08-06 12:52] VITALS: BP 149/79; PULSE 58; RESP 16; TEMP 97.8
[2022-08-06] MEDS ORDERED: EPINEPHrine 1:10,000 (P-F SYR) 1 MG/10 ML DISP.SYRIN ONE (15:23)
== END 2022-08-06 13:30 | disposition home or self-care (01) ==
LOC: JASU-ENDO 05:09
PROVIDERS: ATTEND Internal Medicine Gastroenterology
PROC: 0DBM8ZX Excision of Descending Colon, Via Natural or Artificial Opening Endoscopic, Diagnostic (ICD-10-PCS; 2022-08-06)
PROC: 0DBH8ZX Excision of Cecum, Via Natural or Artificial Opening Endoscopic, Diagnostic (ICD-10-PCS; 2022-08-06)
PROC: 0DBN8ZX Excision of Sigmoid Colon, Via Natural or Artificial Opening Endoscopic, Diagnostic (ICD-10-PCS; 2022-08-06)
PROC: 3E0H8GC Introduction of Other Therapeutic Substance into Lower GI, Via Natural or Artificial Opening Endoscopic (ICD-10-PCS; 2022-08-06)
PROC: 0DBK8ZX Excision of Ascending Colon, Via Natural or Artificial Opening Endoscopic, Diagnostic (ICD-10-PCS; principal; 2022-08-06 09:30)
DX: Z12.11 Encounter for screening for malignant neoplasm of colon (principal); D12.0 Benign neoplasm of cecum; D12.4 Benign neoplasm of descending colon; D12.2 Benign neoplasm of ascending colon; K63.5 Polyp of colon; K57.30 Diverticulosis of large intestine without perforation or abscess without bleeding; K64.8 Other hemorrhoids; Z86.010 Personal history of colon polyps; Z80.0 Family history of malignant neoplasm of digestive organs
CPT/HCPCS: 88305-TC

== ENCOUNTER 2022-08-20 04:09 | Day surgery (SDC) | payer OTHER, BC ==
[2022-08-17 09:29] VITALS: BMI 28.3
[2022-08-20 09:46] VITALS: BP 137/66; PULSE 61; RESP 19; TEMP 97.8
== END 2022-08-20 10:02 | disposition home or self-care (01) ==
LOC: JASU-ENDO 04:09
PROVIDERS: ATTEND Internal Medicine Gastroenterology
PROC: 0DB78ZX Excision of Stomach, Pylorus, Via Natural or Artificial Opening Endoscopic, Diagnostic (ICD-10-PCS; 2022-08-20)
PROC: 0DB68ZX Excision of Stomach, Via Natural or Artificial Opening Endoscopic, Diagnostic (ICD-10-PCS; principal; 2022-08-20 08:30)
DX: K29.50 Unspecified chronic gastritis without bleeding (principal); K44.9 Diaphragmatic hernia without obstruction or gangrene
CPT/HCPCS: 88305-TC; 88342-TC

== ENCOUNTER 2022-10-19 04:32 | Day surgery (SDC) | payer OTHER, BC ==
[2022-10-14 11:37] VITALS: BMI 29.2
[2022-10-19] MEDS ORDERED: BUPIVACAINE HCL/PF 0.5% (5MG/ML) 10 ML VIAL ONE (10:35)
[2022-10-19] MEDS ORDERED: LIDOCAINE HCL 1%, 10 MG/ML (20ML VIAL) ONE (10:35)
[2022-10-19] MEDS ORDERED: FENTANYL CITRATE/PF 50 MCG/ML VIAL ONE (10:39)
[2022-10-19] MEDS ORDERED: MIDAZOLAM HCL 2 MG/2 ML SINGLE DOSE VIAL ONE (10:40)
[2022-10-19] MEDS ORDERED: HEPARIN NA (PORCINE) 5,000 UNITS/ML 1ML VIAL ONE (10:53)
[2022-10-19] MEDS ORDERED: ceFAZolin SODIUM 1 GM VIAL ONE (11:14)
[2022-10-19] MEDS ORDERED: ceFAZolin SODIUM 1 GM VIAL IVPB ONE (11:15)
[2022-10-19] MEDS ORDERED: LIDOCAINE HCL 1%, 10 MG/ML (20ML VIAL) NR ONE (11:26)
[2022-10-19] MEDS ORDERED: BUPIVACAINE HCL/PF 0.5% (5MG/ML) 10 ML VIAL NR ONE (11:36)
[2022-10-19 15:35] VITALS: RESP 20; TEMP 98
[2022-10-19 15:43] VITALS: BP 139/84; PULSE 68
== END 2022-10-19 15:30 | disposition home or self-care (01) ==
LOC: JASU-SURG 04:32
PROVIDERS: ATTEND Student in an Organized Health Care Education/Training Program
PROC: 0JH63WZ Insertion of Totally Implantable Vascular Access Device into Chest Subcutaneous Tissue and Fascia, Percutaneous Approach (ICD-10-PCS; principal; 2022-10-19 09:30)
DX: C34.12 Malignant neoplasm of upper lobe, left bronchus or lung (principal); Z87.891 Personal history of nicotine dependence
CPT/HCPCS: 36561; C1788; 71045-TC-FY; 94760; J1644

== ENCOUNTER 2022-11-03 10:46 | Day surgery (SDC) | payer OTHER, BC ==
[~2022-11-03 10:46] MED LIST changes: -ACETAMINOPHEN 325 MG TABLET (FP) PO PRN; +CARBOPLATIN IVPB ONE; +CYANOCOBALAMIN (VITAMIN B-12) 1000 MCG/1 ML VIAL IM ONE; +DEXAMETHASONE SODIUM PHOSPHATE 10 MG in SODIUM CHLORIDE 50 ML IVPB ONE; +FOSAPREPITANT DIMEGLUMINE 150 MG in SODIUM CHLORIDE 145 ML IVPB ONE; +PALONOSETRON HCL 0.25 MG/5 ML VIAL IVPUSH ONE; +PEMETREXED DISODIUM IVPB ONE; -PHENYLEPHRINE 2.5% OPHTH SOLN 15 ML BOTTLE OP SCH; +SODIUM CHLORIDE 250 ML IV ONE; +SODIUM CHLORIDE IVPB ONE
[2022-11-03 11:21] LABS: BASO % 0.2 % (0-2.0); HEMATOCRIT 43.7 % (32.4-45.2); HEMOGLOBIN 14.4 GM/dL (10.7-15.3); LYMPH % 7.4 % (8-40); MCH 28.1 pg (25.7-33.7); MEAN CELL VOLUME 85.1 fl (80-96); MEAN PLT VOLUME 9.5 fl (7.5-11.1); MONO % 8.9 % (3.8-10.2); NEUT % 83.5 % (42.8-82.8); PLATELET COUNT 326 10^3/uL (134-434); RBC 5.14 M/mm3 (3.60-5.2); RDW 14.3 % (11.6-15.6); WHITE BLOOD COUNT 12.4 K/mm3 (4.0-10.0)
[2022-11-03 11:40] LABS: CALCIUM 11.4 mg/dL (8.5-10.1)
[2022-11-03 11:41] LABS: ALBUMIN 4.2 g/dl (3.4-5.0); BLOOD UREA NITROGEN 21.2 mg/dL (7-18); MAGNESIUM 2.3 mg/dL (1.8-2.4)
[2022-11-03 11:43] LABS: BILIRUBIN,DIRECT 0.2 mg/dL (0.0-0.2)
[2022-11-03 11:45] LABS: BILIRUBIN,TOTAL 0.8 mg/dL (0.2-1); TOT PROT 7.9 g/dl (6.4-8.2)
[2022-11-03] MEDS ORDERED: SODIUM CHLORIDE IVPB ONE (12:15)
[2022-11-03] MEDS ORDERED: CARBOPLATIN IVPB ONE (12:15)
[2022-11-03 16:13] VITALS: BP 132/53; PULSE 85; RESP 20; TEMP 97.5
[2022-11-03] MEDS ORDERED: PORTA CATH FLUSH 10 ML IVPUSH PRN (16:38)
== END 2022-11-03 15:00 | disposition home or self-care (01) ==
LOC: JONCCHEMO 10:46
PROVIDERS: ATTEND Internal Medicine Hematology & Oncology
DX: Z51.11 Encounter for antineoplastic chemotherapy (principal); C34.12 Malignant neoplasm of upper lobe, left bronchus or lung; C54.1 Malignant neoplasm of endometrium
CPT/HCPCS: 36415; 80048; 80076; 83735; 85025; 96367; 96372; 96375; 96411; 96413; J1453; J2469; J9305

== ENCOUNTER 2022-11-04 09:14 | Day surgery (SDC) | payer OTHER, BC ==
[2022-11-04] MEDS ORDERED: PEGFILGRASTIM-CBQV (UDENYCA) 6 MG/0.6 ML SYRINGE SQ ONE (10:00)
[2022-11-04 13:32] VITALS: BP 161/75; PULSE 92; RESP 18; TEMP 97.9
== END 2022-11-04 09:45 | disposition home or self-care (01) ==
LOC: JONCCHEMO 09:14
PROVIDERS: ATTEND Internal Medicine Hematology & Oncology
PROC: 3E013GC Introduction of Other Therapeutic Substance into Subcutaneous Tissue, Percutaneous Approach (ICD-10-PCS; principal; 2022-11-04)
DX: C34.12 Malignant neoplasm of upper lobe, left bronchus or lung (principal); Z76.89 Persons encountering health services in other specified circumstances
CPT/HCPCS: 96372; Q5111

== ENCOUNTER 2022-11-10 11:26 | Day surgery (SDC) | payer OTHER, BC ==
[2022-11-10 11:45] LABS: HEMATOCRIT 41.3 % (32.4-45.2); HEMOGLOBIN 13.5 GM/dL (10.7-15.3); MCH 28.1 pg (25.7-33.7); MCHC 32.8 g/dl (32.0-36.0); MEAN CELL VOLUME 85.6 fl (80-96); MEAN PLT VOLUME 9.4 fl (7.5-11.1); PLATELET COUNT 132 10^3/uL (134-434); RBC 4.82 M/mm3 (3.60-5.2); RDW 14.2 % (11.6-15.6); WHITE BLOOD COUNT 4.7 K/mm3 (4.0-10.0)
[2022-11-10] MEDS ORDERED: D5-1/2NS+20 MEQ KCL - 20 MEQ/1,000 ML INFUS.BAG IV ONE (12:00)
[2022-11-10] MEDS ORDERED: MAGNESIUM 1GM/D5W - 1 GM/100 ML IVPB IVPB ONE (12:00)
[2022-11-10 12:12] LABS: ANISOCYTOSIS 0; HELMET CELLS 0; HOWELL-JOLLY BODIES 0; MACROCYTOSIS 0; OVALOCYTE 0; ROULEAU 0; SICKELED CELLS 0; TARGET CELLS 0; TEAR DROP CELLS 0; TOXIC GRANULATION 0
[2022-11-10 12:13] LABS: BLOOD UREA NITROGEN 14.8 mg/dL (7-18); CALCIUM 9.8 mg/dL (8.5-10.1); MAGNESIUM 2.4 mg/dL (1.8-2.4)
[2022-11-10 12:14] LABS: ALBUMIN 3.8 g/dl (3.4-5.0)
[2022-11-10 12:16] LABS: BILIRUBIN,DIRECT 0.2 mg/dL (0.0-0.2); CREATININE 0.9 mg/dL (0.55-1.3)
[2022-11-10 12:18] LABS: BILIRUBIN,TOTAL 0.8 mg/dL (0.2-1); TOT PROT 6.9 g/dl (6.4-8.2)
[2022-11-10 16:37] VITALS: BP 125/58; PULSE 68; RESP 18; TEMP 98.2
[2022-11-10] MEDS ORDERED: PORTA CATH FLUSH 10 ML IVPUSH PRN (16:37)
== END 2022-11-10 15:00 | disposition home or self-care (01) ==
LOC: JONCNONCHE 11:26
PROVIDERS: ATTEND Internal Medicine Hematology & Oncology
PROC: 3E043GC Introduction of Other Therapeutic Substance into Central Vein, Percutaneous Approach (ICD-10-PCS; principal; 2022-11-10)
DX: Z76.89 Persons encountering health services in other specified circumstances (principal); C34.12 Malignant neoplasm of upper lobe, left bronchus or lung
CPT/HCPCS: 36415; 80048; 80076; 83735; 85025; 96365; 96366; 96368

== ENCOUNTER 2022-11-25 10:29 | Day surgery (SDC) | payer OTHER, BC ==
[~2022-11-25 10:29] MED LIST changes: -CARBOPLATIN IVPB ONE; +DEXAMETHASONE SODIUM PHOSPHATE 10 MG in DEXTROSE 5%-WATER - 50 ML IVPB ONE; -DEXAMETHASONE SODIUM PHOSPHATE 10 MG in SODIUM CHLORIDE 50 ML IVPB ONE; -PEMETREXED DISODIUM IVPB ONE; -SODIUM CHLORIDE IVPB ONE
[2022-11-25] MEDS ORDERED: PEMETREXED DISODIUM IVPB ONE (10:30)
[2022-11-25] MEDS ORDERED: SODIUM CHLORIDE IVPB ONE ×2 (10:30→11:00)
[2022-11-25] MEDS ORDERED: CARBOPLATIN IVPB ONE (11:00)
[2022-11-25 11:25] LABS: BASO % 0.1 % (0-2.0); HEMATOCRIT 40.6 % (32.4-45.2); HEMOGLOBIN 13.5 GM/dL (10.7-15.3); LYMPH % 3.5 % (8-40); MCH 28.2 pg (25.7-33.7); MCHC 33.2 g/dl (32.0-36.0); MEAN PLT VOLUME 8.5 fl (7.5-11.1); MONO % 8.1 % (3.8-10.2); NEUT % 88.3 % (42.8-82.8); PLATELET COUNT 526 10^3/uL (134-434); RBC 4.78 M/mm3 (3.60-5.2); WHITE BLOOD COUNT 16.7 K/mm3 (4.0-10.0)
[2022-11-25 11:39] LABS: CALCIUM 11.5 mg/dL (8.5-10.1)
[2022-11-25 11:40] LABS: ALBUMIN 4.1 g/dl (3.4-5.0); BLOOD UREA NITROGEN 16.4 mg/dL (7-18); MAGNESIUM 2.5 mg/dL (1.8-2.4)
[2022-11-25 11:42] LABS: BILIRUBIN,DIRECT 0.1 mg/dL (0.0-0.2)
[2022-11-25 11:44] LABS: TOT PROT 7.5 g/dl (6.4-8.2)
[2022-11-25 11:54] LABS: BILIRUBIN,TOTAL 0.4 mg/dL (0.2-1)
[2022-11-25 17:09] VITALS: RESP 20; TEMP 97.6
[2022-11-25 17:19] VITALS: BP 143/73; PULSE 81
[2022-11-25] MEDS ORDERED: PORTA CATH FLUSH 10 ML IVPUSH PRN (17:19)
== END 2022-11-25 14:45 | disposition home or self-care (01) ==
LOC: JONCCHEMO 10:29
PROVIDERS: ATTEND Internal Medicine Hematology & Oncology
DX: Z51.11 Encounter for antineoplastic chemotherapy (principal); C34.12 Malignant neoplasm of upper lobe, left bronchus or lung
CPT/HCPCS: 36415; 80048; 80076; 83735; 85025; 96367; 96375; 96411; 96413; J1453; J2469; J9305

== ENCOUNTER 2022-11-26 14:39 | Day surgery (SDC) | payer OTHER, BC ==
[~2022-11-26 14:39] MED LIST changes: -CYANOCOBALAMIN (VITAMIN B-12) 1000 MCG/1 ML VIAL IM ONE; +D5-1/2NS+20 MEQ KCL - 20 MEQ/1,000 ML INFUS.BAG IV ONE; -DEXAMETHASONE SODIUM PHOSPHATE 10 MG in DEXTROSE 5%-WATER - 50 ML IVPB ONE; -FOSAPREPITANT DIMEGLUMINE 150 MG in SODIUM CHLORIDE 145 ML IVPB ONE; -PALONOSETRON HCL 0.25 MG/5 ML VIAL IVPUSH ONE; +PEGFILGRASTIM-CBQV (UDENYCA) 6 MG/0.6 ML SYRINGE SQ ONE; -SODIUM CHLORIDE 250 ML IV ONE
[2022-11-26 16:43] VITALS: RESP 20; TEMP 97.8
[2022-11-26] MEDS ORDERED: PORTA CATH FLUSH 10 ML IVPUSH PRN (16:43)
[2022-11-26 18:50] VITALS: BP 142/70; PULSE 81
== END 2022-11-26 18:51 | disposition home or self-care (01) ==
LOC: JONCCHEMO 14:39
PROVIDERS: ATTEND Internal Medicine Hematology & Oncology
PROC: 3E0437Z Introduction of Electrolytic and Water Balance Substance into Central Vein, Percutaneous Approach (ICD-10-PCS; principal; 2022-11-26)
PROC: 3E013GC Introduction of Other Therapeutic Substance into Subcutaneous Tissue, Percutaneous Approach (ICD-10-PCS; 2022-11-26)
DX: C34.12 Malignant neoplasm of upper lobe, left bronchus or lung (principal); Z76.89 Persons encountering health services in other specified circumstances
CPT/HCPCS: 36415; 82310; 96360; 96361; 96372; Q5111

== ENCOUNTER 2022-11-29 15:49 | Emergency (ER) | payer OTHER, BC ==
[2022-11-29 16:04] VITALS: BP 122/57; PULSE 87; RESP 16; TEMP 99.7; BMI 29.2
[2022-11-29 19:41] LABS: BASO % 0.3 % (0-2.0); EOS % 0.1 % (0-4.5); HEMATOCRIT 41.1 % (32.4-45.2); HEMOGLOBIN 13.7 GM/dL (10.7-15.3); LYMPH % 2.1 % (8-40); MCH 28.4 pg (25.7-33.7); MCHC 33.3 g/dl (32.0-36.0); MEAN CELL VOLUME 85.2 fl (80-96); MEAN PLT VOLUME 8.5 fl (7.5-11.1); MONO % 2.2 % (3.8-10.2); NEUT % 95.3 % (42.8-82.8); PLATELET COUNT 355 10^3/uL (134-434); RBC 4.83 M/mm3 (3.60-5.2); RDW 15.5 % (11.6-15.6); WHITE BLOOD COUNT 15.3 K/mm3 (4.0-10.0)
[2022-11-29 19:43] LABS: VENOUS BASE EXCESS 0.2 mmol/L (-2-2); VENOUS O2 SATURATION 16.9 % (70-80); VENOUS PH 7.375 (7.310-7.410)
[2022-11-29 19:49] LABS: INR 1.07 (0.83-1.09); PROTHROMBIN TIME (PATIENT) 12.3 SEC (9.7-13.0)
[2022-11-29 19:52] LABS: ACTIVATED PTT 26.8 SECONDS (25.2-36.5)
[2022-11-29 20:09] LABS: CALCIUM 9.2 mg/dL (8.5-10.1)
[2022-11-29 20:10] LABS: ALBUMIN 3.7 g/dl (3.4-5.0); BLOOD UREA NITROGEN 17.6 mg/dL (7-18)
[2022-11-29 20:13] LABS: CREATININE 1.1 mg/dL (0.55-1.3)
[2022-11-29 20:14] LABS: BILIRUBIN,TOTAL 1.1 mg/dL (0.2-1); TOT PROT 6.8 g/dl (6.4-8.2)
[2022-11-29] MEDS ORDERED: ACETAMINOPHEN 500 MG TABLET (FP) PO ONE (21:25)
[2022-11-29 22:22] LABS: EPI CELLS 7 /uL (0-25.1); HYALINE CASTS 0 /uL (0-3.1); PH,URINE 5.5 (5.0-8.0); URINE APPEARANCE CLEAR; URINE BACTERIA 50 /uL (0-1359); URINE BILIRUBIN NEGATIVE (NEGATIVE); URINE COLOR YELLOW; URINE GLUCOSE (UA) NEGATIVE (NEGATIVE); URINE KETONE NEGATIVE (NEGATIVE); URINE LEUK ESTERASE 1+ (NEGATIVE); URINE NITRITE NEGATIVE (NEGATIVE); URINE PROTEIN NEGATIVE (NEGATIVE); URINE RBC 8 /uL (0-23.9); URINE UROBILINOGEN 0.2 mg/dL (0.2-1.0); URINE WBC 57 /uL (0-25.8)
[2022-11-29] MEDS ORDERED: ACETAMINOPHEN 325 MG TABLET (FP) ONE (22:23)
[2022-11-29 22:27] LABS: VENOUS BASE EXCESS 1.6 mmol/L (-2-2); VENOUS O2 SATURATION 64.3 % (70-80); VENOUS PCO2 38.4 mmHg (38-52); VENOUS PH 7.442 (7.310-7.410)
== END 2022-11-30 00:04 | disposition home or self-care (01) ==
LOC: JER 15:49
DX: U07.1 COVID-19 (principal)
CPT/HCPCS: 0241U-QW; 36415; 71045-TC-FY; 80053; 81003; 82803; 83605; 84484; 85025; 85610; 85730; 86850; 86900; 86901; 87040; 87086; 93005; 93010; 99285-25

== ENCOUNTER 2022-12-16 09:55 | Day surgery (SDC) | payer OTHER, BC ==
[~2022-12-16 09:55] MED LIST changes: +CYANOCOBALAMIN (VITAMIN B-12) 1000 MCG/1 ML VIAL IM ONE; -D5-1/2NS+20 MEQ KCL - 20 MEQ/1,000 ML INFUS.BAG IV ONE; +DEXAMETHASONE SODIUM PHOSPHATE IVPB ONE; +DEXTROSE 5% IVPB ONE; +FOSAPREPITANT DIMEGLUMINE 150 MG in SODIUM CHLORIDE 145 ML IVPB ONE; +PALONOSETRON HCL 0.25 MG/5 ML VIAL IVPUSH ONE; -PEGFILGRASTIM-CBQV (UDENYCA) 6 MG/0.6 ML SYRINGE SQ ONE; +SODIUM CHLORIDE 250 ML IV ONE; +WATER IVPB ONE
[2022-12-16] MEDS ORDERED: PEMETREXED DISODIUM IVPB ONE (10:00)
[2022-12-16] MEDS ORDERED: SODIUM CHLORIDE IVPB ONE ×3 (10:00→11:45)
[2022-12-16] MEDS ORDERED: CARBOPLATIN IVPB ONE ×2 (10:11→11:45)
[2022-12-16 10:17] LABS: BASO % 0.2 % (0-2.0); HEMATOCRIT 36.5 % (32.4-45.2); HEMOGLOBIN 12.2 GM/dL (10.7-15.3); MCH 29.2 pg (25.7-33.7); MCHC 33.3 g/dl (32.0-36.0); MEAN CELL VOLUME 87.6 fl (80-96); MEAN PLT VOLUME 8.3 fl (7.5-11.1); MONO % 12.2 % (3.8-10.2); NEUT % 81.6 % (42.8-82.8); PLATELET COUNT 387 10^3/uL (134-434); RBC 4.16 M/mm3 (3.60-5.2)
[2022-12-16 10:59] LABS: CALCIUM 10.4 mg/dL (8.5-10.1)
[2022-12-16 11:00] LABS: ALBUMIN 3.9 g/dl (3.4-5.0); BLOOD UREA NITROGEN 19.2 mg/dL (7-18); MAGNESIUM 2.2 mg/dL (1.8-2.4)
[2022-12-16 11:03] LABS: BILIRUBIN,DIRECT 0.2 mg/dL (0.0-0.2); CREATININE 1.2 mg/dL (0.55-1.3)
[2022-12-16 11:04] LABS: BILIRUBIN,TOTAL 0.5 mg/dL (0.2-1)
[2022-12-16 11:05] LABS: TOT PROT 7.2 g/dl (6.4-8.2)
[2022-12-16 15:02] VITALS: BP 115/61; PULSE 73; RESP 20; TEMP 97.7
[2022-12-16] MEDS ORDERED: PORTA CATH FLUSH 10 ML IVPUSH PRN (15:02)
== END 2022-12-16 13:55 | disposition home or self-care (01) ==
LOC: JONCCHEMO 09:55
PROVIDERS: ATTEND Internal Medicine Hematology & Oncology
DX: Z51.11 Encounter for antineoplastic chemotherapy (principal); C34.12 Malignant neoplasm of upper lobe, left bronchus or lung
CPT/HCPCS: 36415; 80048; 80076; 83735; 85025; 96367; 96375; 96413; J1453; J2469

== ENCOUNTER 2022-12-17 14:47 | Day surgery (SDC) | payer OTHER, BC ==
[~2022-12-17 14:47] MED LIST changes: -CYANOCOBALAMIN (VITAMIN B-12) 1000 MCG/1 ML VIAL IM ONE; +D5-1/2NS+20 MEQ KCL - 20 MEQ/1,000 ML INFUS.BAG IV ONE; -DEXAMETHASONE SODIUM PHOSPHATE IVPB ONE; -DEXTROSE 5% IVPB ONE; -FOSAPREPITANT DIMEGLUMINE 150 MG in SODIUM CHLORIDE 145 ML IVPB ONE; -PALONOSETRON HCL 0.25 MG/5 ML VIAL IVPUSH ONE; -SODIUM CHLORIDE 250 ML IV ONE; -WATER IVPB ONE
[2022-12-17 18:27] VITALS: RESP 20; TEMP 98
[2022-12-17 18:40] VITALS: BP 141/87; PULSE 74
[2022-12-17] MEDS ORDERED: PORTA CATH FLUSH 10 ML IVPUSH PRN (18:40)
== END 2022-12-17 18:20 | disposition home or self-care (01) ==
LOC: JONCCHEMO 14:47
PROVIDERS: ATTEND Internal Medicine Hematology & Oncology
PROC: 3E0437Z Introduction of Electrolytic and Water Balance Substance into Central Vein, Percutaneous Approach (ICD-10-PCS; principal; 2022-12-17)
DX: C34.12 Malignant neoplasm of upper lobe, left bronchus or lung (principal); Z76.89 Persons encountering health services in other specified circumstances
CPT/HCPCS: 96360; 96361

== ENCOUNTER 2023-01-06 08:42 | Day surgery (SDC) | payer OTHER, BC ==
[2023-01-06] MEDS ORDERED: SODIUM CHLORIDE 250 ML IV ONE (09:30)
[2023-01-06 09:43] LABS: BASO % 0.2 % (0-2.0); HEMATOCRIT 36.1 % (32.4-45.2); HEMOGLOBIN 12.3 GM/dL (10.7-15.3); LYMPH % 6.6 % (8-40); MCH 30.5 pg (25.7-33.7); MCHC 34.1 g/dl (32.0-36.0); MEAN CELL VOLUME 89.4 fl (80-96); MEAN PLT VOLUME 8.1 fl (7.5-11.1); MONO % 10.7 % (3.8-10.2); NEUT % 82.5 % (42.8-82.8); PLATELET COUNT 222 10^3/uL (134-434); RBC 4.03 M/mm3 (3.60-5.2); RDW 19.3 % (11.6-15.6); WHITE BLOOD COUNT 5.9 K/mm3 (4.0-10.0)
[2023-01-06] MEDS ORDERED: DEXAMETHASONE SODIUM PHOSPHATE 8 MG in SODIUM CHLORIDE 50 ML IVPB ONE (10:00)
[2023-01-06] MEDS ORDERED: FOSAPREPITANT DIMEGLUMINE 150 MG in SODIUM CHLORIDE 145 ML IVPB ONE (10:00)
[2023-01-06] MEDS ORDERED: PALONOSETRON HCL 0.25 MG/5 ML VIAL IVPUSH ONE (10:00)
[2023-01-06] MEDS ORDERED: CYANOCOBALAMIN (VITAMIN B-12) 1000 MCG/1 ML VIAL IM ONE (10:00)
[2023-01-06 10:05] LABS: ALBUMIN 3.9 g/dl (3.4-5.0); BLOOD UREA NITROGEN 14.4 mg/dL (7-18); CALCIUM 10.2 mg/dL (8.5-10.1); MAGNESIUM 2.3 mg/dL (1.8-2.4)
[2023-01-06 10:07] LABS: BILIRUBIN,DIRECT 0.2 mg/dL (0.0-0.2); BILIRUBIN,TOTAL 0.6 mg/dL (0.2-1); TOT PROT 7.2 g/dl (6.4-8.2)
[2023-01-06] MEDS ORDERED: SODIUM CHLORIDE IVPB ONE ×3 (10:30→11:30)
[2023-01-06] MEDS ORDERED: PEMETREXED DISODIUM IVPB ONE (10:30)
[2023-01-06] MEDS ORDERED: CARBOPLATIN IVPB ONE ×2 (10:45→11:30)
[2023-01-06 16:38] VITALS: TEMP 98
[2023-01-06] MEDS ORDERED: PORTA CATH FLUSH 10 ML IVPUSH PRN (16:48)
[2023-01-06 16:49] VITALS: BP 122/66; PULSE 78; RESP 18
== END 2023-01-06 13:45 | disposition home or self-care (01) ==
LOC: JONCCHEMO 08:42
PROVIDERS: ATTEND Internal Medicine Hematology & Oncology
DX: Z51.11 Encounter for antineoplastic chemotherapy (principal); C34.12 Malignant neoplasm of upper lobe, left bronchus or lung
CPT/HCPCS: 36415; 80048; 80076; 83735; 85025; 96367; 96372; 96375; 96402; 96411; 96413; J1453; J2469; J9305

== ENCOUNTER 2023-04-05 04:25 | Day surgery (SDC) | payer OTHER, BC ==
[2023-04-01 16:25] VITALS: BMI 27.6
[2023-04-05 08:43] VITALS: TEMP 97.8
[2023-04-05 11:12] VITALS: RESP 16
[2023-04-05 11:18] VITALS: BP 133/57; PULSE 60
== END 2023-04-05 11:40 | disposition home or self-care (01) ==
LOC: JASU-ENDO 04:25
PROVIDERS: ATTEND Internal Medicine Gastroenterology
PROC: 0DJD8ZZ Inspection of Lower Intestinal Tract, Via Natural or Artificial Opening Endoscopic (ICD-10-PCS; principal; 2023-04-05 09:15)
DX: K57.30 Diverticulosis of large intestine without perforation or abscess without bleeding (principal); K64.8 Other hemorrhoids

== ENCOUNTER 2023-06-22 04:56 | Day surgery (SDC) | payer OTHER, BC ==
[2023-06-17 16:30] VITALS: BMI 27.3
[2023-06-22 10:35] VITALS: TEMP 98.2
[2023-06-22 10:53] VITALS: RESP 18
[2023-06-22 11:17] VITALS: BP 115/78; PULSE 64
== END 2023-06-22 11:40 | disposition home or self-care (01) ==
LOC: JASU-ENDO 04:56
PROVIDERS: ATTEND Internal Medicine Gastroenterology
PROC: 0DBN8ZX Excision of Sigmoid Colon, Via Natural or Artificial Opening Endoscopic, Diagnostic (ICD-10-PCS; 2023-06-22)
PROC: 0DBP8ZX Excision of Rectum, Via Natural or Artificial Opening Endoscopic, Diagnostic (ICD-10-PCS; 2023-06-22)
PROC: 0DBK8ZX Excision of Ascending Colon, Via Natural or Artificial Opening Endoscopic, Diagnostic (ICD-10-PCS; principal; 2023-06-22 09:45)
DX: Z12.11 Encounter for screening for malignant neoplasm of colon (principal); D12.2 Benign neoplasm of ascending colon; D12.5 Benign neoplasm of sigmoid colon; K62.1 Rectal polyp; K64.8 Other hemorrhoids; K57.30 Diverticulosis of large intestine without perforation or abscess without bleeding; Z86.010 Personal history of colon polyps
CPT/HCPCS: 88305-TC

== ENCOUNTER 2023-08-26 04:50 | Day surgery (SDC) | payer OTHER, BC ==
[2023-08-24 16:42] VITALS: BMI 27.3
[2023-08-26] MEDS ORDERED: LIDOCAINE HCL 1%, 10 MG/ML (20ML VIAL) ONE (08:34)
[2023-08-26] MEDS ORDERED: MIDAZOLAM HCL 2 MG/2 ML SINGLE DOSE VIAL ONE (08:41)
[2023-08-26] MEDS ORDERED: DEXAMETHASONE SOD PHOSPHATE 4 MG/1 ML VIAL ONE (09:08)
[2023-08-26] MEDS ORDERED: ONDANSETRON 4 MG/2 ML VIAL ONE (09:08)
[2023-08-26] MEDS ORDERED: LIDOCAINE HCL 1%, 10 MG/ML (20ML VIAL) INF ONE (09:15)
[2023-08-26 10:00] VITALS: RESP 20
[2023-08-26 11:22] VITALS: BP 144/66; PULSE 64; TEMP 97.6
== END 2023-08-26 11:58 | disposition home or self-care (01) ==
LOC: JASU-SURG 04:50
PROVIDERS: ATTEND Student in an Organized Health Care Education/Training Program
PROC: 0JPT0WZ Removal of Totally Implantable Vascular Access Device from Trunk Subcutaneous Tissue and Fascia, Open Approach (ICD-10-PCS; principal; 2023-08-26 09:00)
DX: Z45.2 Encounter for adjustment and management of vascular access device (principal); C34.90 Malignant neoplasm of unspecified part of unspecified bronchus or lung
CPT/HCPCS: 88304-TC; 88342-TC

== ENCOUNTER 2025-05-15 06:31 | Day surgery (SDC) | payer OTHER, BC ==
[2025-04-19 16:18] VITALS: BMI 26.4
[2025-05-15 10:37] VITALS: RESP 18; TEMP 97.6
[2025-05-15 11:37] VITALS: BP 117/78; PULSE 72
== END 2025-05-15 11:44 | disposition home or self-care (01) ==
LOC: JASU-ENDO 06:31
PROVIDERS: ATTEND Internal Medicine Gastroenterology
PROC: 0DBL8ZX Excision of Transverse Colon, Via Natural or Artificial Opening Endoscopic, Diagnostic (ICD-10-PCS; 2025-05-15)
PROC: 0DBN8ZX Excision of Sigmoid Colon, Via Natural or Artificial Opening Endoscopic, Diagnostic (ICD-10-PCS; 2025-05-15)
PROC: 0DBH8ZX Excision of Cecum, Via Natural or Artificial Opening Endoscopic, Diagnostic (ICD-10-PCS; principal; 2025-05-15 09:15)
DX: Z12.11 Encounter for screening for malignant neoplasm of colon (principal); K57.30 Diverticulosis of large intestine without perforation or abscess without bleeding; D12.3 Benign neoplasm of transverse colon; D12.5 Benign neoplasm of sigmoid colon; K64.8 Other hemorrhoids
CPT/HCPCS: 88305-TC